=== PATIENT | female | born 1995 | race Caucasian/White ===

== ENCOUNTER 2016-11-01 17:15 | Emergency (ER) | payer OTHER ==
[2016-11-01 17:31] VITALS: BP 124/80; PULSE 104; RESP 18; TEMP 98.2; O2SAT 98
--- NOTE | 2016-11-01 17:58 | UCPHY ---
H & P Time Seen by Provider: 11/01/16 17:45 Patient Type: Established HPI/ROS: This pt. c/o a 3 week hx. of dry cough that is worsening. She saw Dr. April Robison at [facility] 8 days ago was diagnosed with bronchitis, started on albuterol inhaler without spacer and a course of prednisone-5 day burst. She reports compliance with the prednisone and she tried the albuterol for few days but did feel she was improving so she stopped using it. She feels over the past few days she has had increasing frequency intensity of the cough. She notes no other exacerbating or alleviating factors. ROS: No fevers or chills. No other constitutional symptoms except for mild myalgias. HEENT: She has some coryza and a frontal headache of mild intensity similar to previous headaches achy in nature. No sore throat no ear pain. Pulmonary: No pleuritic pain. No hemoptysis. No respiratory distress. She is able to sleep at night despite the cough. Cardiovascular: No lightheadedness. No calf swelling or pain. GI: No nausea vomiting. Integumentary: No skin rash. 10 point ROS is otherwise negative. Past Medical/Surgical History: She had a negative chest x-ray performed comparable medicine last week. She denies any history of asthma though she reports that the [facility] physician felt she might have reactive airway disease. Smoking Status: Never smoked Physical Exam: Physical Exam Vital signs are normal. General: No acute distress HEENT: Nose: Clear discharge bilaterally. No sinus tenderness to percussion. Ears: External canals and tympanic membranes are clear with no erythema or abnormal findings bilaterally. Oropharynx: No erythema or exudates. No dysphonia. No drooling or stridor. Eyes: Pupils equal and react to light. Extraocular motions are intact. Neck: Supple with no meningismus. Lungs: Faint expiratory wheeze only when she coughs. No rales or rhonchi. No increased work of breathing. Cardiac: Regular rate and rhythm with no murmur gallop or rub. No calf swelling or tenderness. Skin: No rash or pallor. Neuro: Alert with no focal deficits noted. Initial differential diagnosis: Bacterial bronchitis, viral bronchitis with reactive airway disease, doubt pneumonia, URI with cough Constitutional: Initial Vital Signs Temperature (C) 36.8 C 11/01/16 17:25 Heart Rate 104 H 11/01/16 17:25 Respiratory Rate 18 11/01/16 17:25 Blood Pressure 124/80 H 11/01/16 17:25 O2 Sat (%) 98 11/01/16 17:25 O2 Delivery Mode Room Air Allergies/Adverse Reactions: No Known Allergies Allergy (Verified 07/09/16 08:32) Home Medications: Medication Instructions Recorded Bcp 04/04/15 Antidepressants 11/01/16 Azithromycin [Zithromax] 250 mg PO DAILY #6 tab 11/01/16 MDM/Departure - [facility] ED Course/Re-evaluation: This patient has no clinical evidence of sepsis or other concerning findings. She has a lingering cough for 3 weeks now. Will cover her with macrolide antibiotic for potential atypical bacteria. Also encouraged her to use her albuterol and we gave her a spacer to use with the albuterol fall for better medication delivery. - Depart Disposition: Home, Routine, Self-Care Clinical Impression: Acute bronchitis Qualifiers: Bronchitis organism: unspecified organism Qualified Code(s): J20.9 - Acute bronchitis, unspecified Condition: Good Instructions: Acute Bronchitis (ED) Additional Instructions: Diagnosis: Acute bronchitis Plan: Humidifier Guaifenesin [id number] Albuterol inhaler with spacer-2 puffs every 4 hours as needed for cough, wheeze or shortness of breath At Zithromax antibiotic Return for any significant worsening despite the treatment plan. Prescriptions: Azithromycin [Zithromax] 250 mg PO DAILY #6 tab Referrals: NONE *PRIMARY CARE P,. [Primary Care Provider] - As per Instructions - PQRS PQRS Measurement: NA
== END 2016-11-01 18:03 | disposition home or self-care (01) ==
LOC: CED 17:15
DX: J20.9 Acute bronchitis, unspecified (principal)
CPT/HCPCS: 99214-PO; G0463-PO

== ENCOUNTER 2017-01-23 21:54 | Emergency (ER) | payer OTHER ==
[2017-01-23 22:00] VITALS: RESP 16; O2SAT 97
--- NOTE | 2017-01-23 23:31 | EDPHY ---
H & P Stated Complaint: pt says she rolled R ankle while walking on rocks, c/o pain/ swelling Time Seen by Provider: 01/23/17 23:22 HPI/ROS: HPI The patient presents with right ankle and foot pain after inverting her right ankle on a oliver surface at approximately 6:00 p.m. tonight. She describes pain in the dorsum of her foot which is achy, worse when she walks, does not radiate, it is not associated with any numbness or tingling. The pain is moderate. She has no prior ankle or foot injuries.. REVIEW OF SYSTEMS Constitutional: No fever, no chills. Eyes: No discharge. ENT: No sore throat. Cardiovascular: No chest pain, no palpitations. Respiratory: No cough, no shortness of breath. Gastrointestinal: No abdominal pain, no vomiting. Genitourinary: No hematuria. Musculoskeletal: No back pain. Skin: No rashes. Neurological: No headache. PMHx: Depression PHYSICAL General Appearance: Alert, no distress Eyes: Pupils equal and round no pallor or injection ENT, Mouth: Mucous membranes moist Respiratory: Breathing comfortably Neurological: A&O, moves all extremities Skin: Warm and dry, no rashes Musculoskeletal: Neck is supple non tender Extremities: Right foot with tenderness to dorsum with ecchymoses laterally, 2 + DP pulses, sensation is intact to light touch, full range of motion of ankle Psychiatric: Patient is oriented X 3, there is no agitation Source: Patient Exam Limitations: No limitations - Personal History Tetanus Vaccine Date: 02/24 - Medical/Surgical History Hx Asthma: No Hx Chronic Respiratory Disease: No Hx Diabetes: No Hx Cardiac Disease: No Hx Renal Disease: No Hx Cirrhosis: No Hx Alcoholism: No Hx HIV/AIDS: No Hx Splenectomy or Spleen Trauma: No Other PMH: depression - Social History Smoking Status: Never smoked Constitutional: Initial Vital Signs Temperature (C) 36.6 C 01/23/17 21:58 Heart Rate 103 H 01/23/17 21:58 Respiratory Rate 16 01/23/17 21:58 Blood Pressure 128/87 H 01/23/17 21:58 O2 Sat (%) 97 01/23/17 21:58 O2 Delivery Mode Room Air Allergies/Adverse Reactions: No Known Allergies Allergy (Verified 01/23/17 22:00) Home Medications: Medication Instructions Recorded Bcp 04/04/15 Antidepressants 11/01/16 Medical Decision Making - Diagnostics Imaging Results: Imaging Impressions Ankle X-Ray 01/23/17 22:34 Impression: Query ligamentous injury with mortise asymmetry, but no fracture appreciated. If there is further clinical concern regarding the patient's symptoms, MR imaging could be considered. Foot x-ray three view shows no fracture, no dislocation, interpreted by me, radiology interpretation pending. Imaging: I viewed and interpreted images myself Differential Diagnosis: This is a 21-year-old female who presents with a fall just prior to arrival in which she inverted her ankle and now is complaining of pain of her ankle and foot. Ankle films have been obtained showing no fracture, foot films have been ordered. Differential diagnosis includes ankle sprain, foot fracture, foot sprain. Foot films were obtained showing no fracture. Formal reads are pending. I will place her in a cast shoe. She is able to walk without difficulty. She will be discharged with orthopedic follow-up as needed. Departure - Departure Disposition: Home, Routine, Self-Care Clinical Impression: Sprain of left foot Qualifiers: Encounter type: initial encounter Qualified Code(s): S93.602A - Unspecified sprain of left foot, initial encounter Condition: Good Instructions: Foot Sprain (ED), RICE Therapy (ED) Additional Instructions: Please use rest, ice, elevation for your foot. You can take ibuprofen 400 mg and acetaminophen a 1000 mg every 6 hours as needed for pain. I managing her pain will be better in the next few days, however if it is not, you can follow up with the natural resource specialist listed below. Referrals: SHIRA BARRERA NO SPECIFIC [Other] - As per Instructions Candy Apple PA [Physician Toll Operator] - As per Instructions
[2017-01-24 00:52] VITALS: BP 118/72; PULSE 86; TEMP 98.1
== END 2017-01-24 00:57 | disposition home or self-care (01) ==
DX: S93.601A Unspecified sprain of right foot, initial encounter (principal); X58.XXXA Exposure to other specified factors, initial encounter; Y99.8 Other external cause status; Y93.89 Activity, other specified
CPT/HCPCS: L3260

== ENCOUNTER 2019-01-04 17:38 | Observation (INO) | payer OTHER | END 2019-01-05 09:50 | disposition home or self-care (01) | LOC: F3E 01-05 02:15 → CED 17:38 → CEDHOLD 20:09 ==